=== PATIENT | female | born 1950 | race Caucasian/White ===

== ENCOUNTER 2018-04-08 08:58 | Inpatient (IN) | payer MEDICARE, OTHER | END 2018-04-10 15:45 | disposition home health service (06) | LOC: PAS IN 08:58 → ORTHO 4S 14:30 | PROC: 0SRC0J9 Replacement of Right Knee Joint with Synthetic Substitute, Cemented, Open Approach (ICD-10-PCS; principal; 2018-04-08 10:21) | DX: M17.11 Unilateral primary osteoarthritis, right knee (principal); I10 Essential (primary) hypertension ==